=== PATIENT | male | born 1985 | race Two or more races ===

== ENCOUNTER 2016-08-13 20:30 | Inpatient (IN) | payer MEDICAID ==
[2016-08-13] MEDS ORDERED: NS 1,000 ML IV ONE (20:37)
--- NOTE | 2016-08-13 20:40 | EDPHY ---
HPI/HX/ROS/PE/MDM Narrative: CHIEF COMPLAINT: Full Trauma Activation, 60ft fall, hypotension, back pain HPI: The patient is a 31 y/o male arriving emergently via EMS as a Full Trauma Alert and in spinal precautions after falling approximately 60ft in while climbing in [facility] this afternoon. It is unclear why the patient fell, but he was helmeted and clipped into a harness. He remembers striking his back during the fall and landing on his chest. He then lost consciousness and awoke to his friends standing over him. EMS reports it took 3 hours to access and extricate the patient. The patient complains of low back pain, tingling in his left hand, and weakness in his left leg. EMS states he was unable to raise or flex his left leg due to weakness. The patient denies head, neck, chest, or abdomen pain. He denies pertinent medical history. REVIEW OF SYSTEMS: Aside from elements discussed in the HPI, a comprehensive 10-point review of systems was reviewed and is negative. 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 PHYSICAL EXAM: General:Patient is alert, in no acute distress. BP 110/68 ENT:Eyes are normal to inspection. Pupils are 2mm bilaterally and reactive. ENT inspection normal. Neck: Normal inspection. ROM deferred. C-collar in place. Respiratory:No respiratory distress. Breath sounds normal bilaterally. Cardiovascular: Regular rate and rhythm. Strong peripheral pulses. Normal cap refill. Abdomen:The abdomen is nontender to palpation. There are no peritoneal signs. There are normal bowel sounds. Back: Tenderness to lumbar spine, left lumbar paraspinous tenderness, tenderness over left posterior hip and sacrum. Skin: Normal color. No rash. Warm and dry. Abrasion and ecchymosis over left side of sacrum. Abrasion to right cheek. Extremities: Normal appearance. Full passive range of motion. Neuro: Oriented x3. Normal motor function. Normal sensory function. ED Course: Dr. Mobley, surgeon, at bedside. Respiratory and imaging at bedside. Blood bank at bedside. 2030: I met EMS upon arrival and took report. This is a healthy 31 y/o male who presents as a FTA after falling 60ft and now complains of lumbar back pain, left leg weakness, and left arm tingling. He was wearing a helmet but suffered loss of consciousness of unknown duration. His exam is positive for lumbar tenderness that is worse on the left, ecchymosis and abrasion to the left-side of his sacrum, and an abrasion to his right cheek. His chest and breath sounds are normal. His abdomen is nontender. No significant extremity trauma noted. His initial vitals are 110/68 on manual BP, tachycardic at 110, SpO2 98%, and RR 20. He received 100mcg IV Fentanyl en route. 2 peripheral IVs were established by EMS. Standard trauma labs drawn. 2040: Patient sent to CT. Head, neck, chest, abdomen/pelvis, and spinal recons ordered. 2107: Consulted with Dr. Mobley. He relayed CT results from Dr. Liriano. The patient has left superior and inferior pubic rami fractures, L1 compression fracture, and multiple sacral fractures. He will require admission to Dr. Mobley , trauma services. Study: CT of the Head Indication: Trauma, LOC Results: CT scan of the head was obtained. The results of the study are No acute posttraumatic abnormality identified. The study was read by the radiologist, Dr. Liriano. I viewed the images myself on the PACS system. Study: CT of the Neck Indication: Trauma, LOC Results: CT scan of the neck was obtained. The results of the study are No acute posttraumatic abnormality identified. The study was read by the radiologist, Dr. Liriano. I viewed the images myself on the PACS system. Study: CT of the Chest Indication: Trauma Results: CT scan of the chest was obtained. The results of the study are Patchy right lung contusion without pneumothorax or pleural fluid. The study was read by the radiologist, Dr. Liriano. I viewed the images myself on the PACS system. Study: CT of the Abdomen/Pelvis Indication: Trauma, pain Results: CT scan of the head was obtained. The results of the study are 1. Multiple upper sacral fractures as well as left superior and inferior pubic rami fractures. 2. superficial posterior soft tissue hemorrhage and small left inguinal hemorrhage. 3. L1 compression fracture. The study was read by the radiologist, Dr. Liriano. I viewed the images myself on the PACS system. Study: CT of the Lumbar and Thoracic Spine Indication: Trauma, pain Results: CT scan of the spine was obtained. The results of the study are 1. Mild L1 compression fracture. 2. Large disk herniations at L4-L5 and L5-S1. 3. Sacral fractures are discussed in the pelvic CT report. The study was read by the radiologist, Dr. Liriano. I viewed the images myself on the PACS system. 2100: Wound care and pain management with Fentanyl continued in ED until admission to floor. Patient remains hemodynamically stable. MDM: I personally spent a total of 45 minutes of critical care time in obtaining history, performing a physical exam, bedside monitoring of interventions, collecting and interpreting tests and discussion with consultants but not including time spent performing procedures. This time was exclusive of any involvement by Physician Furnace Room Supervisor. Organ system(s) at risk include: Neurologic , orthopedic and cardiovascular - Data Points Laboratory Results: Laboratory Results 08/13/16 20:40 08/13/16 20:40 08/13/16 08/13/16 08/13/16 20:40 20:40 20:40 WBC 21.16 10^3/uL H 10^3/uL (3.80-9.50) RBC 4.29 10^6/uL L 10^6/uL (4.40-6.38) Hgb 12.9 g/dL L g/dL (13.7-17.5) POC Hgb Hct 38.1 % L % (40.0-51.0) POC Hct MCV 88.8 fL fL (81.5-99.8) MCH 30.1 pg pg (27.9-34.1) MCHC 33.9 g/dL g/dL (32.4-36.7) RDW 12.6 % % (11.5-15.2) Plt Count 198 10^3/uL 10^3/uL (150-400) MPV 9.8 fL fL (8.7-11.7) Neut % (Auto) Not Reported Lymph % (Auto) Not Reported [place] % (Auto) Not Reported Eos % (Auto) Not Reported Baso % (Auto) Not Reported Nucleat RBC Rel Count 0.0 % % (0.0-0.2) Absolute Neuts (auto) Not Reported Absolute Lymphs (auto) Not Reported Absolute Monos (auto) Not Reported Absolute Eos (auto) Not Reported Absolute Basos (auto) Not Reported Absolute Nucleated RBC 0.00 10^3/uL 10^3/uL (0-0.01) Immature Gran % Not Reported Seg Neutrophils % 74 % % Band Neutrophils % 13 % % Lymphocytes % 8 % % Monocytes % 5 % % Immature Gran # Not Reported Absolute Seg Neuts 15.66 10^/uL H 10^/uL (1.70-6.50) Absolute Band Neuts 2.75 10^3/uL H 10^3/uL (0.00-0.70) Absolute Lymphocytes 1.69 10^3/uL 10^3/uL (1.00-3.00) Absolute Monocytes 1.06 10^3/uL H 10^3/uL (0.30-0.80) RBC/WBC/PLT Morphology NORMAL (NORMAL) Platelet Estimate ADEQUATE (ADEQ) PT 17.9 SEC H SEC (12.0-15.0) INR 1.48 H (0.83-1.16) APTT 29.2 SEC SEC (23.0-38.0) POC Sodium Sodium POC Potassium Potassium POC Chloride Chloride Carbon Dioxide Anion Gap POC BUN BUN Creatinine POC Creatinine Estimated GFR Glucose POC Glucose Calcium Patient ABO/Rh B POSITIVE Antibody Screen NEGATIVE 08/13/16 08/13/16 20:40 20:34 WBC RBC Hgb POC Hgb 14.6 gm/dL gm/dL (14.5-17.3) Hct POC Hct 43 % % (42.8-50.6) MCV MCH MCHC RDW Plt Count MPV Neut % (Auto) Lymph % (Auto) [place] % (Auto) Eos % (Auto) Baso % (Auto) Nucleat RBC Rel Count Absolute Neuts (auto) Absolute Lymphs (auto) Absolute Monos (auto) Absolute Eos (auto) Absolute Basos (auto) Absolute Nucleated RBC Immature Gran % Seg Neutrophils % Band Neutrophils % Lymphocytes % Monocytes % Immature Gran # Absolute Seg Neuts Absolute Band Neuts Absolute Lymphocytes Absolute Monocytes RBC/WBC/PLT Morphology Platelet Estimate PT INR APTT POC Sodium 138 mEq/L mEq/L (134-144) Sodium 135 mEq/L mEq/L (134-144) POC Potassium 3.4 mEq/L mEq/L (3.3-5.0) Potassium 3.7 mEq/L mEq/L (3.5-5.2) POC Chloride 107 mEq/L mEq/L (96-108) Chloride 106 mEq/L mEq/L (97-110) Carbon Dioxide 21 mEq/l L mEq/l (22-31) Anion Gap 8 mEq/L mEq/L (8-16) POC BUN 24 mg/dL H mg/dL (7-23) BUN 22 mg/dL mg/dL (7-23) Creatinine 1.2 mg/dL mg/dL (0.7-1.3) POC Creatinine 1.3 mg/dL mg/dL (0.8-1.5) Estimated GFR > 60 Glucose 145 mg/dL H mg/dL (70-100) POC Glucose 148 mg/dL H mg/dL (70-100) Calcium 8.1 mg/dL L mg/dL (8.5-10.4) Patient ABO/Rh Antibody Screen Point of Care Test Results: 08/13/16 20:34 POC Sodium 138 POC Potassium 3.4 POC Chloride 107 POC BUN 24 H POC Creatinine 1.3 POC Glucose 148 H General Initial Vital Signs: Initial Vital Signs Temperature (C) 37 C 08/13/16 20:30 Heart Rate 88 08/13/16 20:30 Respiratory Rate 20 08/13/16 20:30 Blood Pressure 93/46 L 08/13/16 20:30 O2 Sat (%) 100 08/13/16 20:30 O2 Delivery Mode Nasal Cannula O2 (L/minute) 2 Allergies/Adverse Reactions: No Known Allergies Allergy (Unverified 08/13/16 21:49) Home Medications: Medication Instructions Recorded Glucosamine Sulfate [Glucosamine 500 mg PO DAILY 08/13/16 Sulfate 500 MG (*)] Herbals/Supplements -Info Only 1 ea PO DAILY 08/13/16 [place]-3 Fatty Acids [Fish Oil 1000 1,000 mg PO DAILY 08/13/16 mg (*)] Departure - Departure Disposition: [facility] Inpatient Acute Clinical Impression: Injury resulting from fall from height Fracture of left inferior pubic ramus Qualifiers: Encounter type: initial encounter Fracture type: closed Qualified Code(s): S32.592A - Other specified fracture of left pubis, initial encounter for closed fracture Fracture of left superior pubic ramus Qualifiers: Encounter type: initial encounter Fracture type: closed Qualified Code(s): S32.512A - Fracture of superior rim of left pubis, initial encounter for closed fracture Fracture of sacrum Qualifiers: Encounter type: initial encounter Zone of sacrum fracture: unspecified portion of sacrum Fracture type: closed Qualified Code(s): S32.10XA - Unspecified fracture of sacrum, initial encounter for closed fracture Compression fracture of L1 lumbar vertebra Qualifiers: Encounter type: initial encounter Fracture type: closed Qualified Code(s): S32.010A - Wedge compression fracture of first lumbar vertebra, initial encounter for closed fracture Condition: Fair Report Scribed for: Aki Gonzalez Report Scribed by: Janett Menchaca Date of Report: 08/13/16 Time of Report: 20:22 Physician Review and Approval Statement: Portions of this note were transcribed by an ED scribe. I personally performed the history, physical exam, and medical decision making; and confirm the accuracy of the information in the transcribed note.
[2016-08-13 20:49] LABS: ADD DIFF? YES; ADD MORPH? NO; ATYPICAL LYMPHOCYTE FLAG 0 (0-99); FRAGMENT RBC FLAG 0 (0-99); HEMATOCRIT 38.1 % (40.0-51.0); HEMOGLOBIN 12.9 g/dL (13.7-17.5); LIPEMIA HEMOLYSIS FLAG 90 (0-99); MEAN CELL HEMOGLOBIN 30.1 pg (27.9-34.1); MEAN CELL HEMOGLOBIN CONCENTR. 33.9 g/dL (32.4-36.7); MEAN CELL VOLUME 88.8 fL (81.5-99.8); MEAN PLATELET VOLUME 9.8 fL (8.7-11.7); PLATELET CLUMPS FLAG 10 (0-99); PLATELET COUNT 198 10^3/uL (150-400); RED BLOOD CELL COUNT 4.29 10^6/uL (4.40-6.38); RED CELL DISTRIBUTION WIDTH 12.6 % (11.5-15.2)
[2016-08-13 20:54] LABS: ADD SCAN? NO; LEFT SHIFT FLG 100 (0-99)
[2016-08-13 20:57] LABS: INR 1.48 (0.83-1.16); PROTIME(PATIENT) 17.9 SEC (12.0-15.0)
[2016-08-13 20:58] LABS: APTT 29.2 SEC (23.0-38.0)
[2016-08-13 21:01] LABS: ANION GAP 8 mEq/L (8-16); CALCIUM 8.1 mg/dL (8.5-10.4); CARBON DIOXIDE 21 mEq/l (22-31); CHLORIDE 106 mEq/L (97-110); CREATININE 1.2 mg/dL (0.7-1.3); GLOMERULAR FILTRATION RATE > 60; GLUCOSE 145 mg/dL (70-100); POTASSIUM 3.7 mEq/L (3.5-5.2); SODIUM 135 mEq/L (134-144)
[2016-08-13] MEDS ORDERED: HYDROmorphONE/DILAUDID 1 MG/ML SYR ONE (21:18)
[2016-08-13] MEDS ORDERED: ALBUMIN 5% 1,000 ML IV ONE (21:30)
[2016-08-13] MEDS ORDERED: NS 500 ML IV ONE (21:30)
[2016-08-13 21:55] LABS: PLATELET ESTIMATE ADEQUATE (ADEQ)
--- NOTE | 2016-08-13 22:01 | SOAPPROG ---
SOAP Progress Note Assessment/Plan: Assessment: Plan: 08/13/16 22:00 Will not require operative treatment of left pubic rami fractures. Mobilize as tolerated regarding this. Sacral S2 and L1 fractures per spine Objective: PT 17.9 SEC (12.0-15.0) H 08/13/16 20:40 INR 1.48 (0.83-1.16) H 08/13/16 20:40 Stable pelvis fractures of left inf and sup pubic rami. ICD10 Worksheet Patient Problems: Problems Problem Status Onset Compression fracture of L1 lumbar vertebra Acute Fracture of left inferior pubic ramus Acute Fracture of left superior pubic ramus Acute Fracture of sacrum Acute Injury resulting from fall from height Acute
[2016-08-13] MEDS ORDERED: HYDROmorphONE/DILAUDID 1 MG/ML SYR IVP PRN (22:28)
[2016-08-13] MEDS ORDERED: D5W 1/2 NS 1,000 ML IV SCH (22:30)
[2016-08-13] MEDS ORDERED: D5W 1/2 NS W/ 20 KCl/L 1,000 ML IV SCH (22:30)
--- NOTE | 2016-08-13 22:41 | SOAPPROG ---
SOAP Progress Note Assessment/Plan: Assessment: 31 male with60 ft climbing fall 3 hrs prior to er admisssion co left butttock and leg pain/ no loc/ no other pain complaints ct findings: rt pulmonary mild contusion L1 compression fx complex sacral fxs left superior and inferior pubic rami fxs heent abrasion rt frontal area cor rr chest clear and equal abd nontender gen ok rectal good tone extr full rom and sensation, pain with left thigh movement nka/ no meds/ no tob/ ROS-/ PHX - with no surgeries Plan:admit to icu/ ortho and neuro consult in am 08/13/16 22:34 Objective: Vital Signs Temp Pulse Resp BP Pulse Ox 37 C 88 20 93/46 L 100 08/13/16 21:45 08/13/16 21:45 08/13/16 21:45 08/13/16 21:45 08/13/16 21:45 08/12/16 08/13/16 08/14/16 05:59 05:59 05:59 Intake Total 2750 Balance 2750 PT 17.9 SEC (12.0-15.0) H 08/13/16 20:40 INR 1.48 (0.83-1.16) H 08/13/16 20:40 ICD10 Worksheet Patient Problems: Problems Problem Status Onset Compression fracture of L1 lumbar vertebra Acute Fracture of left inferior pubic ramus Acute Fracture of left superior pubic ramus Acute Fracture of sacrum Acute Injury resulting from fall from height Acute
[2016-08-13 22:59] LABS: HEMATOCRIT 24.4 % (40.0-51.0); HEMOGLOBIN 8.6 g/dL (13.7-17.5)
[2016-08-13] MEDS: ONDANSETRON 4 MG/2 ML VIAL IVP PRN (23:27)
[2016-08-13] MEDS ORDERED: PHYTONADIONE 10 MG in NS 50 ML IV ONE (23:27)
[2016-08-13] MEDS ORDERED: TRANEXAMIC ACID 1,000 MG in NS 100 ML IV ONE (23:31)
[2016-08-14] MEDS ORDERED: LIDOCAINE 2% JELLY 20 ML (UROJECT) UR ONE (00:30)
--- NOTE | 2016-08-14 01:41 | GHP ---
[f rep st] PREOP HISTORY AND PHYSICAL HISTORY OF PRESENT ILLNESS: Patient is a 31-year-old male who was rock climbing at [facility] and fell approximately 60 feet. It is unclear about all the mechanisms of his protection. Apparently, he hit a bolder down below. He denies any real loss of consciousness. It has taken over 3 hours to bring him out of the brohard into the emergency room. His vital signs have been stable. He is mildly hypotensive, but alert, responsive, and cooperative. He mostly complains only of low back or left upper gluteal pain and some difficulties with moving his left leg with "hamstring problems." He specifically denies head, neck, chest, and abdominal pain. PAST MEDICAL HISTORY: Reveals no major surgeries or serious hospitalizations. ALLERGIES: None. MEDICATIONS: None. REVIEW OF SYSTEMS: Negative on a full review of systems. PHYSICAL EXAMINATION: GENERAL: Reveals an alert, cooperative, calm 31-year- old male, in no acute distress. HEAD and NECK: Reveals no evidence of significant head trauma. He has a slight abrasion on his right cheek. TMs are clear. Pupils are normal. Occlusion is normal. His neck is in cervical collar , but is nontender. CHEST: Reveals symmetrical breath sounds. There are no palpable rib fractures or clavicle fractures. CARDIAC: Regular rhythm. ABDOMEN: Soft, has positive bowel sounds. He has no appreciable abdominal tenderness. PELVIS: Appears to be intact, stable even with no real tenderness elicited on palpation or compression of his pelvis. EXTREMITIES: Reveal full range of motion, full distal pulses. Good capillary filling. He complains of pain with moving his left leg mostly related to the upper inner thigh area, but he has intact sensation throughout. RECTAL: Reveals good rectal tone. IMAGING: Imaging studies of his head and neck were negative for any evidence of injury. CT of his abdomen and pelvis with spine reconstructions revealed an L1 compression fracture, multiple complex sacral fractures, and the inferior and superior pubic ramus fracture on the left. He has no free blood in the abdomen and minimal blood in the retroperitoneum by the sacral fractures. IMPRESSION: 1. Left sacral fracture. 2. L1 compression fracture. 3. Abrasions and contusions. 4, superior and inferior left pubic ramus fractures PLAN: Admit for observation with neurosurgical and orthopedic consultations. /[id number]/MODL MTDD
[2016-08-14 02:12] LABS: HEMATOCRIT 29.4 % (40.0-51.0); HEMOGLOBIN 10.2 g/dL (13.7-17.5)
[2016-08-14] MEDS ORDERED: DOPamine/DEXTROSE/250 ML BAG IV ONE (02:46)
[2016-08-14] MEDS: OXYCODONE/APAP 5/325 TAB PO PRN ×4 (02:52→19:50)
[2016-08-14 04:29] LABS: % IMMATURE GRANULYOCYTES 0.6 % (0.0-1.1); ABSOLUTE IMMATURE GRANULOCYTES 0.06 10^3/uL (0.00-0.10); ADD DIFF? NO; ADD MORPH? NO; ADD SCAN? NO; ATYPICAL LYMPHOCYTE FLAG 0 (0-99); FRAGMENT RBC FLAG 0 (0-99); HEMOGLOBIN 9.8 g/dL (13.7-17.5); LEFT SHIFT FLG 90 (0-99); LIPEMIA HEMOLYSIS FLAG 90 (0-99); MEAN CELL HEMOGLOBIN 30.5 pg (27.9-34.1); MEAN CELL VOLUME 87.2 fL (81.5-99.8); MEAN PLATELET VOLUME 10.3 fL (8.7-11.7); PLATELET CLUMPS FLAG 20 (0-99); PLATELET COUNT 91 10^3/uL (150-400); RED BLOOD CELL COUNT 3.21 10^6/uL (4.40-6.38); RED CELL DISTRIBUTION WIDTH 15.2 % (11.5-15.2)
[2016-08-14 04:44] LABS: ANION GAP 8 mEq/L (8-16); CALCIUM 7.4 mg/dL (8.5-10.4); CARBON DIOXIDE 22 mEq/l (22-31); CHLORIDE 110 mEq/L (97-110); GLOMERULAR FILTRATION RATE > 60; GLUCOSE 122 mg/dL (70-100); POTASSIUM 4.7 mEq/L (3.5-5.2); SODIUM 140 mEq/L (134-144)
[2016-08-14 04:52] LABS: INR 1.56 (0.83-1.16); PROTIME(PATIENT) 18.7 SEC (12.0-15.0)
[2016-08-14 04:53] LABS: APTT 32.6 SEC (23.0-38.0)
[2016-08-14] MEDS: ONDANSETRON 4 MG/2 ML VIAL IVP PRN (07:26)
[2016-08-14 08:47] LABS: HEMATOCRIT 26.3 % (40.0-51.0); HEMOGLOBIN 9.2 g/dL (13.7-17.5)
--- NOTE | 2016-08-14 08:51 | GCON ---
[f rep st] CONSULTATION INPATIENT CONSULTATION NOTE DATE OF CONSULTATION: 08/14/2016 I was asked to see the patient secondary to pelvis fractures sustained after a 60 foot rock climbing fall. His history is well detailed in his intake through the emergency department at [facility] as well as notes from Dr. Dale Mobley. Briefly, he has fallen approximately 20 feet with lo ss of consciousness at the scene. He was extricated after a prolonged extrication that took approxi mately 3 hours. He has been identified as having a left superior and inferior pubic rami fractures in addition to sacral and lumbar spine fractures. PHYSICAL EXAMINATION: Finds his pelvis to be stable to compression and rock testing. He does have discomfort in the anterior inguinal crease, consistent with his bony injuries. He has a capillary r efill of 2 seconds or less in the toes with a bounding dorsalis pedis and posterior tibialis pulse. Muscle bulk and sensation on the thighs and calves also were normal. He has normal sensory exam in the tibial, superficial and deep peroneal, sural, and saphenous nerve distributions in his foot hiren aterally. A CT scan of the abdomen and pelvis reveals superior and inferior pubic rami fractures. His sacral fracture as such, it does not appear that it violates the pelvic ring which should allow weightbearing through the femoral acetabular joints bilaterally as tolerated. IMPRESSIONS/RECOMMENDATIONS: Minimally displaced left superior and inferior pubic rami fractures. This should allow weightbearing as tolerated to the bilateral lower extremities, but I think it will likely take 3-4 days at least before he is comfortable enough to be upright. The spine service may feel that he is unsuitable based on his spine fractures for standing erect, and I would defer to eir judgment on when he may do this. Typically, follow these patients up at approximately 6 weeks f or pelvis x-rays to ensure that there is satisfactory evidence of bone healing. Do not hesitate to call me if there is any additional indications for orthopedic consultation. /[id number]/MODL
--- NOTE | 2016-08-14 09:22 | NEUSURGPN ---
Assessment/Plan: Full neurosurgical consult dictated 31 yo male sp 60 ft fall while rock climbing sustaining sacral, pelvic fracture and L1 compression fracture -Neuro intact -[place] out later today to check urinary function -TLSO brace to be ordered from [employer] today -Brace to be worn only when out of bed, not in bed -No surgical indications for L1 compression fracture -Saw with Dr. Robison at 0830am -Call with any questions Catheter Insertion Date: 08/14/16 - Physician Discussed Patient with Dr.: Robison Patient Seen by : Ricki Neurosurgery Physical Exam - Vitals, I&O, Labs I and O 08/13/16 08/14/16 08/15/16 05:59 05:59 05:59 Intake Total 4278 641 Output Total 745 Balance 3533 641 Weight 59 kg Intake: Oral (ml) 250 IV Intake (ml) 0 IV Infused (ml) 3428 Albumin 5% 1,000 ml @ As 0 Directed IV ONCE ONE Rx#: [id number] D5W 1/2 NS W/ 20 KCl/L 1, 651 000 ml @ 75 mls/hr IV CONT LYN Rx#:[id number] DOPamine/DEXTROSE 250 ml 27 @ As Directed IV AD LYN Rx#:[id number] Fresh Frozen Plasma (ml) 641 Packed Red Blood Cells ( 600 ml) Output: Urine (ml) 745 Catheter 745 Other: Number of Voids 0 Vital Signs Temp Pulse Resp BP Pulse Ox 37.8 C 98 15 99/60 L 96 08/14/16 08:00 08/14/16 09:00 08/14/16 09:00 08/14/16 09:00 08/14/16 09:00 Laboratory Results 08/14/16 08:25 08/14/16 04:00 ICD10 Worksheet Patient Problems: Problems Problem Status Onset Compression fracture of L1 lumbar vertebra Acute Fracture of left inferior pubic ramus Acute Fracture of left superior pubic ramus Acute Fracture of sacrum Acute Injury resulting from fall from height Acute
--- NOTE | 2016-08-14 11:03 | GCON ---
[f rep st] CONSULTATION NEUROSURGERY CONSULTATION NOTE CHIEF COMPLAINT: Fall while climbing, back pain. HISTORY OF PRESENT ILLNESS: This is a 31-year-old gentleman who was climbing yesterday in [facility] when he slipped and fell approximately 60 feet. It is really unclear why the patient fell, b ut he states that he was helmeted. He then lost consciousness and woke to his friends standing over him. The patient was then taken by the emergency medical services to the emergency room where he w as found to be complaining of back pain, some tingling in his left hand, and weakness in his left le g. The patient denied any head or neck pain. CT scans later showed a sacral fracture as well as a pelvic rami fracture and an L1 compression fracture. Neurosurgery services were consulted for the L 1 compression fracture. The patient stated on our consultation this morning that he is currently silva ving some back pain with movement, but otherwise is doing okay. He denies any numbness, tingling, p ain in his arms or legs. He denies any weakness in his arms or legs. He denies any loss of bowel o r bladder control or any saddle anesthesias. He does currently have a catheter. REVIEW OF SYSTEMS: Pertinent positive and negative review of systems are as stated in HPI. PAST MEDICAL HISTORY: Patient denies any significant past medical history. FAMILY HISTORY: The patient denies any significant past family medical history. He denies any neur ologic family history such as aneurysm, stroke, or seizures. SOCIAL HISTORY: Patient is currently a mountain tour guide. He lives in [place]. He denies a ny tobacco use or any illicit drug use. ALLERGIES: The patient has no known drug allergies. OBJECTIVE: VITAL SIGNS: Blood pressure 92/45, heart rate 93, respiratory rate 16, O2 saturation 96 % on room air. Temperature 37.63 Celsius. CONSTITUTIONAL: Patient is a well-developed, well-holly shed male, in no acute distress. HEENT: Patient has a small abrasion over the right side of his ch telida. Otherwise, head is normocephalic, atraumatic. Pupils are equal and reactive to light and acco mmodation. Extraocular muscles are intact. RESPIRATORY: The patient has normal work of breathing. ABDOMEN: The patient has no guarding. NEURO: Cranial nerves 2-12 are grossly intact. Tongue pr otrusion is midline. Face is symmetrical. Accessory muscles are 5/5 and equal in strength. Motor: Bilateral upper extremities are 5/5 and equal in strength in all muscle groups including deltoids, biceps, triceps, wrist extensors, flexors, interossei, and system support analyst. Sensation is intact to the bilate ral upper extremities. Bilateral lower extremities are 5/5 and equal in strength in all muscle grou ps including hamstrings, quadriceps, dorsiflexion, plantar flexion, and EHL. Sensation is intact to light touch over the bilateral lower extremities. Other reflexes: Deep tendon reflexes are 2+ hiren aterally in the brachioradialis, biceps, and patellar. Negative for Jacobson's, clonus, and Babinski . EXTREMITIES: No cyanosis or edema noted. MUSCULOSKELETAL: There is tenderness to palpation ove r the mid lumbar spine. There is also pain on exam to his left lower extremity due to his pelvic fr actures. LABORATORY DATA: White blood cell count 9.85, red blood cell count 3.21, hematocrit 28.0, platelets 198. PT 18.7, INR 1.56, APTT 32.6. Sodium 140, potassium 4.7, chloride 110, CO2 of 22, anion gap is 8, BUN 23, creatinine 1.0. IMAGING: Reviewed. A CT was done without contrast of the lumbar spine, which showed a large disk h erniation at L4-5 and L5-S1, with sacral fractures and an L1 compression fracture. A cervical spine CT was performed without contrast and shows no acute posttraumatic abnormality. A head CT without contrast was also performed and shows no acute intracranial hemorrhage or any othe r acute changes. ASSESSMENT AND PLAN: This is a 31-year-old male who was climbing out at [facility] and had a f all by approximately 60 feet yesterday. He subsequently does have an L1 compression fracture, as we ll as a sacral and pelvic fractures. For his L1 compression fracture, we will try him in a TLSO samuel kpack-style brace that he is to wear only when he is up and out of bed. He does not need to wear it in bed. At this time, he remains neurologically intact without any signs of weakness. Did talk wi th the nurse about removing his catheter later today to ensure that his bowels and bladder are intac t. He should continue to progress with PT and OT. He is to alert us with any changes in his neuro or motor exam. The patient was seen by Neurosurgical services this morning at 8:30 a.m. Please con tact Neurosurgery with any questions or concerns. /[id number]/MODL
[2016-08-14] MEDS ORDERED: NS 1,000 ML IV ONE (11:06)
--- NOTE | 2016-08-14 12:53 | SOAPPROG ---
SOAP Progress Note Assessment/Plan: Assessment: Plan: Subjective: hd 2 sacfal and pelvic fx, lumbaf 1 compression fx trending hypotensive, but dopamine offf getting fluid challenge. wiill check hct again, may need arteriogram if hct keeps dropping. Objective: Vital Signs Temp Pulse Resp BP Pulse Ox 37.6 C 89 18 103/48 L 94 08/14/16 10:00 08/14/16 12:00 08/14/16 12:00 08/14/16 12:00 08/14/16 12:00 Laboratory Results 08/14/16 08:25 08/14/16 04:00 08/13/16 08/14/16 08/15/16 05:59 05:59 05:59 Intake Total 4278 641 Output Total 745 Balance 3533 641 PT 18.7 SEC (12.0-15.0) H 08/14/16 04:00 INR 1.56 (0.83-1.16) H 08/14/16 04:00 ICD10 Worksheet Patient Problems: Problems Problem Status Onset Compression fracture of L1 lumbar vertebra Acute Fracture of left inferior pubic ramus Acute Fracture of left superior pubic ramus Acute Fracture of sacrum Acute Injury resulting from fall from height Acute
[2016-08-14 13:40] LABS: HEMATOCRIT 23.8 % (40.0-51.0); HEMOGLOBIN 8.3 g/dL (13.7-17.5)
[2016-08-14] MEDS ORDERED: FLUMAZENIL 0.5 MG/5 ML MDV IVP ONE (16:24)
[2016-08-14] MEDS ORDERED: NALOXONE HCL 0.4 MG/ML INJ ONE (16:25)
[2016-08-14] MEDS ORDERED: MIDAZOLAM 2 MG/2 ML VIAL ONE (16:25)
[2016-08-14] MEDS ORDERED: fentaNYL 100 MCG/2 ML INJ ONE (16:25)
[2016-08-14] MEDS ORDERED: PHENYLEPHRINE HCL 50 MG in D5W 250 ML IV SCH (16:30)
--- NOTE | 2016-08-14 16:59 | GCON ---
[f rep st] CONSULTATION PULMONARY/CRITICAL CARE CONSULTATION DATE OF CONSULTATION: 08/14/2016 REFERRING PHYSICIAN: Parker Yoder MD REASON FOR REFERRAL: Evaluation and management of anemia and hypotension. 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 It took them o cortney 3 hours to get him out of the [place]on with [facility]. He received about 3 L of fluid prior to the emergency department. He was mildly hypotensive but alert, responsive and cooperative. He was helmeted at the time of the injury. He had low back and left leg pain with movement. He has be en transfused 2 units since admission. He has had some hypotension for which he has been started on low-dose dopamine. He currently reports that his pain is fairly well controlled. PAST MEDICAL HISTORY: None. MEDICATIONS: None. ALLERGIES: None. SOCIAL HISTORY: The patient is a hunter guide. He does not smoke. FAMILY HISTORY: Unremarkable. REVIEW OF SYSTEMS: A complete review of systems adds nothing to the history of present illness. PHYSICAL EXAMINATION: GENERAL: The patient is awake, alert, and in no acute distress. VITAL SIGNS : Blood pressure is 103/51; the patient is on dopamine at 2.5 mcg/kg per minute. Pulse of 94, he i s afebrile. Oxygen saturations are 93% on room air. HEENT: Normocephalic. He has an abrasion on his face. He has a small fracture of right posterior lower tooth, and a small hematoma under his to ngue. NECK: No adenopathy. Trachea is midline. No masses. CHEST: Clear to auscultation. CARDI AC: Regular rate and rhythm without murmur. ABDOMEN: Soft, nontender. Bowel sounds are present. EXTREMITIES: No clubbing, cyanosis, or edema. He has some ecchymoses in his left buttock. LABORATORY: White blood count is 9.8. Hemoglobin is 8.3, down from 12.9, after transfusion of 2 un its of packed red blood cells. Platelet count is 91. Chemistry group is normal. Glucose is 122. INR is 1.6. CT scan shows several sacral and inferior pubic rami fractures with fairly extensive superficial pos terior soft tissue hemorrhage. Images reviewed. ASSESSMENT: 1. Status post multiple trauma following a climbing accident. The patient has primarily pelvic and sacral fractures and soft-tissue injuries. 2. Anemia. The patient has had over a 4-point drop in hemoglobin despite transfusion of 2 units pa cked red cells, and his hemoglobin continues to fall. There is some concern for an ongoing source o f bleeding in his pelvis. 3. Hypotension. This is likely due to hypovolemia from bleeding. It has responded to low-dose dop amine. 4. Thrombocytopenia. This has developed during hospitalization, likely due to bleeding. 5. Elevated INR. This is likely due to consumption. RECOMMENDATIONS: 1. The patient is being taken to Interventional Radiology, by Dr. Thomas to do selective angiography, to determine if there is active bleeding. 2. As per Dr. Yoder, we will change to dopamine to phenylephrine and minimize saline; however, using blood products or albumin instead. 3. Repeat INR and CBC to follow platelets and coagulation status. /[id number]/MODL
[2016-08-14] MEDS ORDERED: IOPAMIDOL (ISOVUE-300) 100 ML BTL IV ONE ×4 (17:24→19:50)
[2016-08-14] MEDS ORDERED: HEPARIN 10,000 UNIT/10 ML MDV ONE (17:24)
[2016-08-14] MEDS ORDERED: ALTEPLASE 2 MG VIAL IVP PRN (17:35)
[2016-08-14 18:06] LABS: HEMATOCRIT 22.6 % (40.0-51.0); HEMOGLOBIN 7.9 g/dL (13.7-17.5); MEAN CELL HEMOGLOBIN 30.4 pg (27.9-34.1); MEAN CELL VOLUME 86.9 fL (81.5-99.8); RED BLOOD CELL COUNT 2.6 10^6/uL (4.40-6.38); RED CELL DISTRIBUTION WIDTH 15.4 % (11.5-15.2)
[2016-08-14 18:15] LABS: INR 1.53 (0.83-1.16); PROTIME(PATIENT) 18.4 SEC (12.0-15.0)
--- NOTE | 2016-08-14 19:23 | POSTOPPROG ---
Post Op Note Date of Operation: 08/14/16 Surgeon: Sandy Thomas Anesthesia: IV Sedation (fentanyl and versed) Pre-op Diagnosis: trauma Post-op Diagnosis: trauma with multiple vessel injuries Indication: continued hypotension Procedure: LT pelvic and femoral angiogram Findings: 4 truncated/active bleeding vessels coil embolized Inf/Abcess present in the surg proc area at time of surgery?: No Depth: Superfical (Skin SQ) EBL: Minimal Complications: None immediately.
[2016-08-14] MEDS: LR 1,000 ML IV SCH (20:35)
[2016-08-14 22:18] LABS: HEMATOCRIT 25.9 % (40.0-51.0); HEMOGLOBIN 8.9 g/dL (13.7-17.5)
[2016-08-15] MEDS: OXYCODONE/APAP 5/325 TAB PO PRN ×4 (01:00→20:02)
[2016-08-15 01:55] LABS: HEMATOCRIT 25.3 % (40.0-51.0); HEMOGLOBIN 8.8 g/dL (13.7-17.5)
[2016-08-15] MEDS: LR 1,000 ML IV SCH (05:21)
[2016-08-15 05:57] LABS: HEMATOCRIT 25.7 % (40.0-51.0); HEMOGLOBIN 8.7 g/dL (13.7-17.5); MEAN CELL HEMOGLOBIN 28.8 pg (27.9-34.1); MEAN CELL HEMOGLOBIN CONCENTR. 33.9 g/dL (32.4-36.7); MEAN CELL VOLUME 85.1 fL (81.5-99.8); RED BLOOD CELL COUNT 3.02 10^6/uL (4.40-6.38); RED CELL DISTRIBUTION WIDTH 16.1 % (11.5-15.2)
[2016-08-15] MEDS: ONDANSETRON 4 MG/2 ML VIAL IVP PRN ×4 (05:57→20:03)
[2016-08-15 06:00] LABS: INR 1.39 (0.83-1.16)
[2016-08-15 06:04] LABS: ANION GAP 6 mEq/L (8-16); CALCIUM 7.8 mg/dL (8.5-10.4); CARBON DIOXIDE 25 mEq/l (22-31); CHLORIDE 108 mEq/L (97-110); CREATININE 0.8 mg/dL (0.7-1.3); GLOMERULAR FILTRATION RATE > 60; GLUCOSE 88 mg/dL (70-100); POTASSIUM 3.9 mEq/L (3.5-5.2); SODIUM 139 mEq/L (134-144)
--- NOTE | 2016-08-15 08:35 | TRAUMAPN ---
Subjective: awake, sitting up in chair, mild nausea Objective: Vital Signs Temp Pulse Resp BP Pulse Ox 36.9 C 75 16 111/54 L 98 08/15/16 08:00 08/15/16 08:00 08/15/16 08:00 08/15/16 08:00 08/15/16 08:00 Laboratory Results 08/15/16 05:40 08/15/16 05:40 08/14/16 08/15/16 08/16/16 05:59 05:59 05:59 Intake Total 4278 4116 Output Total 745 2275 Balance 3533 1841 PT 17.0 SEC (12.0-15.0) H 08/15/16 05:40 INR 1.39 (0.83-1.16) H 08/15/16 05:40 - C-Spine Clearance Cervical Spine Cleared: Yes Provider who Cleared Cervical Spine: Dr. Mobley Physical Exam - Physical Exam General Appearance: alert, mild distress Neck: non-tender Respiratory: lungs clear, decreased breath sounds (R>L) Cardiac/Chest: regular rate, rhythm Abdomen: non-tender (hypoactive bowel sounds), soft Extremities: normal range of motion, non-tender Neuro/Psych: normal mood/affect, oriented x 3, other (LE DTR's symmetrical)
--- NOTE | 2016-08-15 09:29 | SOAPPROG ---
SOAP Progress Note Assessment/Plan: Assessment: Post pelvic angio with 4 vessel embo for active extrav/truncation of multiple branches. HCT stablizing. Plan: If bleeds again, there's only one more potential source in posterior division of LT IIA that was subtle and hard to get to yesterday. Can repeat angio if needed. 08/15/16 09:25 08/15/16 09:27 Subjective: Sitting in chair resting. Pain controlled. Objective: Vital Signs Temp Pulse Resp BP Pulse Ox 36.9 C 75 16 111/54 L 98 08/15/16 08:00 08/15/16 08:00 08/15/16 08:00 08/15/16 08:00 08/15/16 08:00 Laboratory Results 08/15/16 05:40 08/15/16 05:40 08/14/16 08/15/16 08/16/16 05:59 05:59 05:59 Intake Total 4278 4116 Output Total 745 2275 Balance 3533 1841 PT 17.0 SEC (12.0-15.0) H 08/15/16 05:40 INR 1.39 (0.83-1.16) H 08/15/16 05:40 RT groin puncture site without hematoma. Abd soft. Normal pedal pulses. ICD10 Worksheet Patient Problems: Problems Problem Status Onset Compression fracture of L1 lumbar vertebra Acute Fracture of left inferior pubic ramus Acute Fracture of left superior pubic ramus Acute Fracture of sacrum Acute Injury resulting from fall from height Acute Mountain climbing, rock climbing and wall climbing Acute Mountain climbing, rock climbing and wall climbing Acute
--- NOTE | 2016-08-15 09:37 | NEUSURGPN ---
Assessment/Plan: 31 yo male sp 60 ft fall while rock climbing sustaining sacral, pelvic fracture and L1 compression fracture -Neuro intact- yeboah removed this am, will monitor urinary progress -TLSO brace fit -Brace to be worn only when out of bed, not in bed -No surgical indications for L1 compression fracture -Hypotension- stable this am- had sacrum embolized yesterday due to dropping H/ H. -Call with any changes in neuro or motor exam Subjective: Patient resting in chair. Pain tolerable on medications. Has been up with PT/OT but did become nauseated with movement. has not had BM yet or voided, yeboah just removed this am. Denies saddle anesthesia, incontinence, pain, numbness, tingling in legs. Objective: NAD, VSS A&O X3 CN II-XII grossly intact PERRL, EOMI BUE/BLE 5/5= Sensation intact to lt touch Catheter Insertion Date: 08/14/16 - Physician Discussed Patient with Dr.: Robison Neurosurgery Physical Exam - Vitals, I&O, Labs I and O 08/14/16 08/15/16 08/16/16 05:59 05:59 05:59 Intake Total 4278 4116 Output Total 745 2275 Balance 3533 1841 Weight 59 kg Intake: Oral (ml) 250 500 IV Intake (ml) 0 1000 IV Infused (ml) 3428 1675 Albumin 5% 1,000 ml @ As 0 Directed IV ONCE ONE Rx#: [id number] D5W 1/2 NS W/ 20 KCl/L 1, 651 000 ml @ 75 mls/hr IV CONT LYN Rx#:[id number] DOPamine/DEXTROSE 250 ml 27 @ As Directed IV AD LYN Rx#:[id number] Lr 1,000 ml @ 110 mls/hr 1675 IV CONT LYN Rx#: [id number] Fresh Frozen Plasma (ml) 641 Packed Red Blood Cells ( 600 300 ml) Output: Urine (ml) 745 2275 Catheter 745 2275 Other: Number of Voids 0 Vital Signs Temp Pulse Resp BP Pulse Ox 36.9 C 75 16 111/54 L 98 08/15/16 08:00 08/15/16 08:00 08/15/16 08:00 08/15/16 08:00 08/15/16 08:00 Laboratory Results 08/15/16 05:40 08/15/16 05:40 ICD10 Worksheet Patient Problems: Problems Problem Status Onset Compression fracture of L1 lumbar vertebra Acute Fracture of left inferior pubic ramus Acute Fracture of left superior pubic ramus Acute Fracture of sacrum Acute Injury resulting from fall from height Acute Mountain climbing, rock climbing and wall climbing Acute Mountain climbing, rock climbing and wall climbing Acute
[2016-08-15] MEDS: ENOXAPARIN 40 MG/0.4 ML SYR SC SCH (09:54)
[2016-08-15] MEDS ORDERED: BISACODYL 10 MG SUPP PR PRN (10:49)
[2016-08-15] MEDS ORDERED: LACTULOSE 20 GM/30 ML UDCUP PO PRN (10:49)
[2016-08-15 15:34] LABS: % IMMATURE GRANULYOCYTES 0.5 % (0.0-1.1); ABSOLUTE IMMATURE GRANULOCYTES 0.03 10^3/uL (0.00-0.10); ADD DIFF? NO; ADD MORPH? NO; ADD SCAN? NO; ATYPICAL LYMPHOCYTE FLAG 0 (0-99); FRAGMENT RBC FLAG 0 (0-99); HEMATOCRIT 24.7 % (40.0-51.0); HEMOGLOBIN 8.6 g/dL (13.7-17.5); LEFT SHIFT FLG 30 (0-99); LIPEMIA HEMOLYSIS FLAG 90 (0-99); MEAN CELL HEMOGLOBIN 29.3 pg (27.9-34.1); MEAN CELL HEMOGLOBIN CONCENTR. 34.8 g/dL (32.4-36.7); MEAN PLATELET VOLUME 9.9 fL (8.7-11.7); PLATELET CLUMPS FLAG 0 (0-99); PLATELET COUNT 84 10^3/uL (150-400); RED BLOOD CELL COUNT 2.94 10^6/uL (4.40-6.38); RED CELL DISTRIBUTION WIDTH 15.4 % (11.5-15.2)
--- NOTE | 2016-08-15 16:31 | PDINTPN ---
Physician/Internist Progress Note Assessment/Plan: Assessment: S/P Fall with pelvic/scaral Fxs, extensive hematoma Anemia: Due to soft-tissue bleeding in pelvis/hip tissues: S/P successful IR embolization. Hgb Stable Thrombocytopenia: Consumptive coagulopathy, wiht elevated INR as well. Plt creeping up. Urinary retention Plan: Follow CBC. Straight cath PRN. PO narcotics for pain control. Increase activity as tolerated. 08/15/16 16:29 Subjective: Feels OK, pain control good, even able to stand/walk with assist. + flatus. Unable to urinate after Cortez taken out. Some nausea, no vomiting. Objective: Vital Signs Temp Pulse Resp BP Pulse Ox 36.9 C 94 18 118/60 98 08/15/16 08:00 08/15/16 15:23 08/15/16 15:23 08/15/16 15:23 08/15/16 15:23 Laboratory Results 08/15/16 15:29 08/15/16 05:40 08/14/16 08/15/16 08/16/16 05:59 05:59 05:59 Intake Total 4278 4116 Output Total 745 2275 Balance 3533 1841 PT 17.0 SEC (12.0-15.0) H 08/15/16 05:40 INR 1.39 (0.83-1.16) H 08/15/16 05:40 Physical Exam - Physical Exam General Appearance: alert, no apparent distress EENT: normal ENT inspection Neck: normal inspection Respiratory: lungs clear, normal breath sounds Cardiac/Chest: regular rate, rhythm, No edema Abdomen: normal bowel sounds, non-tender Skin: normal color, warm/dry Extremities: other (left buttocks+ flank swelling/eccymoses), No normal inspection Neuro/Psych: alert, normal mood/affect, oriented x 3 ICD10 Worksheet Patient Problems: Problems Problem Status Onset Compression fracture of L1 lumbar vertebra Acute Fracture of left inferior pubic ramus Acute Fracture of left superior pubic ramus Acute Fracture of sacrum Acute Injury resulting from fall from height Acute Mountain climbing, rock climbing and wall climbing Acute Mountain climbing, rock climbing and wall climbing Acute
[2016-08-15] MEDS: SENNOSIDES/DOCUSATE SODIUM TAB PO SCH (20:02)
[2016-08-16] MEDS: OXYCODONE/APAP 5/325 TAB PO PRN ×4 (04:08→20:00)
[2016-08-16 04:23] LABS: % IMMATURE GRANULYOCYTES 0.5 % (0.0-1.1); ABSOLUTE IMMATURE GRANULOCYTES 0.03 10^3/uL (0.00-0.10); ADD DIFF? NO; ADD MORPH? NO; ADD SCAN? NO; ATYPICAL LYMPHOCYTE FLAG 0 (0-99); FRAGMENT RBC FLAG 0 (0-99); HEMATOCRIT 21.8 % (40.0-51.0); HEMOGLOBIN 7.4 g/dL (13.7-17.5); LEFT SHIFT FLG 10 (0-99); LIPEMIA HEMOLYSIS FLAG 90 (0-99); MEAN CELL HEMOGLOBIN 29.6 pg (27.9-34.1); MEAN CELL HEMOGLOBIN CONCENTR. 33.9 g/dL (32.4-36.7); MEAN CELL VOLUME 87.2 fL (81.5-99.8); MEAN PLATELET VOLUME 10.1 fL (8.7-11.7); PLATELET CLUMPS FLAG 20 (0-99); PLATELET COUNT 74 10^3/uL (150-400); RED CELL DISTRIBUTION WIDTH 14.7 % (11.5-15.2)
--- NOTE | 2016-08-16 06:46 | TRAUMAPN ---
Assessment/Plan: s/p fall with pelvic fracture/associated shearing injury and moderate blood loss /coil embolization mild drop in H/H but hemodynamically stable will recheck H/H later today, continue PT/OT, advance diet transfer to med surg if H/H stable later today Subjective: awake and alert/unable to void-in and out cath performed Objective: Vital Signs Temp Pulse Resp BP Pulse Ox 36.9 C 93 16 120/61 96 08/15/16 08:00 08/16/16 04:00 08/16/16 04:00 08/16/16 04:00 08/16/16 04:00 Laboratory Results 08/16/16 04:12 08/15/16 05:40 08/15/16 08/16/16 08/17/16 05:59 05:59 05:59 Intake Total 4116 2000 Output Total 2275 900 Balance 1841 1100 PT 17.0 SEC (12.0-15.0) H 08/15/16 05:40 INR 1.39 (0.83-1.16) H 08/15/16 05:40 - C-Spine Clearance Cervical Spine Cleared: Yes Provider who Cleared Cervical Spine: Dr. Mobley Physical Exam - Physical Exam General Appearance: alert, mild distress Respiratory: lungs clear Cardiac/Chest: regular rate, rhythm Abdomen: normal bowel sounds, non-tender, soft Neuro/Psych: no motor/sensory deficits, alert, normal mood/affect, oriented x 3
[2016-08-16] MEDS: SENNOSIDES/DOCUSATE SODIUM TAB PO SCH ×2 (08:57→20:00)
[2016-08-16] MEDS: ENOXAPARIN 40 MG/0.4 ML SYR SC SCH (08:59)
[2016-08-16] MEDS: ONDANSETRON 4 MG/2 ML VIAL IVP PRN ×4 (08:59→22:39)
[2016-08-16 11:09] LABS: HEMOGLOBIN 7.9 g/dL (13.7-17.5)
--- NOTE | 2016-08-16 12:53 | NEUSURGPN ---
Assessment/Plan: 31 yo male sp 60 ft fall while rock climbing sustaining sacral, pelvic fracture and L1 compression fracture -Neuro intact- yeboah removed yesterday, still unable to void on own- may be due to sacral nerve injury. Continue with straight cath protocol -TLSO brace fit -Brace to be worn only when out of bed, not in bed -No surgical indications for L1 compression fracture -X-rays show stable L1 and sacral fractures -H/H-slightly dropped today -continue to monitor -Call with any changes in neuro or motor exam -Discussed with Dr. Robison Subjective: Patient doing better today with nausea. Up with PT/OT more yesterday. Feels each time he tries to urinate he may be getting closer to being able to urinate. Denies pain, numbness, tingling in legs. Objective: NAD, VSS BUE/BLE 5/5= Sensation intact to lt touch Catheter Insertion Date: 08/14/16 - Physician Discussed Patient with Dr.: Robison Neurosurgery Physical Exam - Vitals, I&O, Labs I and O 08/15/16 08/16/16 08/17/16 05:59 05:59 05:59 Intake Total 4116 2000 Output Total 2275 900 500 Balance 1841 1100 -500 Intake: Oral (ml) 500 2000 IV Intake (ml) 1000 IV Infused (ml) 1675 Lr 1,000 ml @ 110 mls/hr 1675 IV CONT LYN Rx#: [id number] Fresh Frozen Plasma (ml) 641 Packed Red Blood Cells ( 300 ml) Output: Urine (ml) 2275 900 500 Catheter 2275 900 500 Other: Number of Voids Catheter 1 1 Bladder Scan Volume (ml) Catheter 350 Vital Signs Temp Pulse Resp BP Pulse Ox 36.9 C 81 16 112/70 94 08/15/16 08:00 08/16/16 11:00 08/16/16 08:00 08/16/16 11:00 08/16/16 11:00 Laboratory Results 08/16/16 10:45 08/15/16 05:40 ICD10 Worksheet Patient Problems: Problems Problem Status Onset Compression fracture of L1 lumbar vertebra Acute Fracture of left inferior pubic ramus Acute Fracture of left superior pubic ramus Acute Fracture of sacrum Acute Injury resulting from fall from height Acute Mountain climbing, rock climbing and wall climbing Acute Mountain climbing, rock climbing and wall climbing Acute
--- NOTE | 2016-08-16 13:13 | PDINTPN ---
Lithographer Helper Progress Note Assessment/Plan: Assessment: S/P Fall with pelvic/sacral Fxs, extensive hematoma Anemia: Due to soft-tissue bleeding in pelvis/hip tissues: S/P successful IR embolization. Hgb down a bit this AM. Thrombocytopenia: Consumptive coagulopathy, wiht elevated INR as well. Plt creeping up. Urinary retention Plan: Follow CBC. Straight cath PRN. PO narcotics for pain control. Increase activity as tolerated, ? try Zofran before activity. May transfer to floor if Hgb doesn't fall further. 08/15/16 16:29 08/16/16 13:12 Subjective: Still unable to urinate. Nausea with more strenuous activity. Objective: Vital Signs Temp Pulse Resp BP Pulse Ox 36.9 C 81 16 112/70 94 08/15/16 08:00 08/16/16 11:00 08/16/16 08:00 08/16/16 11:00 08/16/16 11:00 Laboratory Results 08/16/16 10:45 08/15/16 05:40 08/15/16 08/16/16 08/17/16 05:59 05:59 05:59 Intake Total 4116 2000 Output Total 2275 900 500 Balance 1841 1100 -500 PT 17.0 SEC (12.0-15.0) H 08/15/16 05:40 INR 1.39 (0.83-1.16) H 08/15/16 05:40 Physical Exam - Physical Exam General Appearance: alert, no apparent distress EENT: normal ENT inspection Neck: normal inspection Respiratory: lungs clear Cardiac/Chest: regular rate, rhythm, edema Abdomen: normal bowel sounds, non-tender Skin: normal color, warm/dry Extremities: normal inspection Neuro/Psych: alert, normal mood/affect, oriented x 3 ICD10 Worksheet Patient Problems: Problems Problem Status Onset Compression fracture of L1 lumbar vertebra Acute Fracture of left inferior pubic ramus Acute Fracture of left superior pubic ramus Acute Fracture of sacrum Acute Injury resulting from fall from height Acute Mountain climbing, rock climbing and wall climbing Acute Mountain climbing, rock climbing and wall climbing Acute
[2016-08-17] MEDS: ONDANSETRON 4 MG/2 ML VIAL IVP PRN ×3 (05:04→19:30)
[2016-08-17] MEDS: OXYCODONE/APAP 5/325 TAB PO PRN ×4 (05:04→21:29)
--- NOTE | 2016-08-17 08:56 | NEUSURGPN ---
Assessment/Plan: 31 yo male sp 60 ft fall while rock climbing sustaining sacral, pelvic fracture and L1 compression fracture -Neuro intact- still unable to fully void on own- may be due to sacral nerve injury. Continue with straight cath protocol -TLSO brace fit, to be worn only when out of bed, not in bed -No surgical indications for L1 compression fracture -X-rays show stable L1 and sacral fractures -Call with any changes in neuro or motor exam -Discussed with Dr. Robison Subjective: back pain improving, leg pain/strength improving Objective: NAD A&Ox3 MAEx4 09/21 and equal in BUE and BLE. Catheter Insertion Date: 08/14/16 - Physician Discussed Patient with : Ricki Neurosurgery Physical Exam - Vitals, I&O, Labs I and O 08/16/16 08/17/16 08/18/16 05:59 05:59 05:59 Intake Total 2000 Output Total 900 2330 Balance 1100 -2330 Intake: Oral (ml) 2000 Output: Urine (ml) 900 2330 Catheter 900 2180 Urinal 150 Other: Intake Quantity Yes Sufficient Number of Voids Catheter 1 1 Urinal 1 Bladder Scan Volume (ml) Catheter 350 600 Vital Signs Temp Pulse Resp BP Pulse Ox 37.0 C 87 15 111/60 95 08/17/16 07:49 08/17/16 07:49 08/17/16 07:49 08/17/16 07:49 08/17/16 07:49 Laboratory Results 08/17/16 08:13 08/15/16 05:40 ICD10 Worksheet Patient Problems: Problems Problem Status Onset Compression fracture of L1 lumbar vertebra Acute Fracture of left inferior pubic ramus Acute Fracture of left superior pubic ramus Acute Fracture of sacrum Acute Injury resulting from fall from height Acute Mountain climbing, rock climbing and wall climbing Acute Mountain climbing, rock climbing and wall climbing Acute
[2016-08-17] MEDS: SENNOSIDES/DOCUSATE SODIUM TAB PO SCH ×2 (10:15→20:26)
[2016-08-17] MEDS: ENOXAPARIN 40 MG/0.4 ML SYR SC SCH (10:24)
[2016-08-17] MEDS: POLYETHYLENE GLYCOL 3350 17 GM PKT PO PRN (11:21)
[2016-08-17] MEDS: METOCLOPRAMIDE 10 MG TAB PO SCH ×3 (11:21→20:26)
[2016-08-17 11:43] LABS: % IMMATURE GRANULYOCYTES 0.4 % (0.0-1.1); ABSOLUTE IMMATURE GRANULOCYTES 0.02 10^3/uL (0.00-0.10); ADD DIFF? NO; ADD MORPH? NO; ADD SCAN? NO; ATYPICAL LYMPHOCYTE FLAG 10 (0-99); FRAGMENT RBC FLAG 0 (0-99); HEMATOCRIT 22.4 % (40.0-51.0); HEMOGLOBIN 7.7 g/dL (13.7-17.5); LEFT SHIFT FLG 60 (0-99); LIPEMIA HEMOLYSIS FLAG 90 (0-99); MEAN CELL HEMOGLOBIN 29.4 pg (27.9-34.1); MEAN CELL HEMOGLOBIN CONCENTR. 34.4 g/dL (32.4-36.7); MEAN CELL VOLUME 85.5 fL (81.5-99.8); MEAN PLATELET VOLUME 10.4 fL (8.7-11.7); PLATELET CLUMPS FLAG 0 (0-99); PLATELET COUNT 88 10^3/uL (150-400); RED BLOOD CELL COUNT 2.62 10^6/uL (4.40-6.38); RED CELL DISTRIBUTION WIDTH 14.6 % (11.5-15.2)
--- NOTE | 2016-08-17 14:59 | PDIAF ---
- Diagnosis Diagnosis: Urinary retention Code Status: Full Code - Medication Management Discharge Medications: Medications to Continue on Transfer Glucosamine Sulfate [Glucosamine Sulfate 500 MG (*)] 500 mg PO DAILY 08/13/16 [ Last Taken 08/13/16] Herbals/Supplements -Info Only 1 ea PO DAILY 08/13/16 [Last Taken Unknown] [place]-3 Fatty Acids [Fish Oil 1000 mg (*)] 1,000 mg PO DAILY 08/13/16 [Last Taken 08/13/16] Discharge Medications: Refer to the Discharge Home Medication list for PRN reason. - Orders Services needed: Home Care, Registered Nurse Home Care Face to Face: I certify that this patient was under my care and that I had the required [id number] encounter meeting the encounter requirements on the discharge day. My findings support the fact that the patient is homebound as defined in CMS Chapter 7 Medicare Benefits Manual 30.1.1, The condition of the patient is such that there exists a normal inability to leave home and consequently, leaving home would require a considerable and taxing effort. Diet Recommendation: no restrictions on diet Equipment: Self-catheterization supplies - Follow Up Care Current Providers and Referrals: Patient,NotPresent [Unknown] - As per Instructions
--- NOTE | 2016-08-17 16:03 | PDINTPN ---
Workers' Compensation Commissioner Progress Note Assessment/Plan: Assessment: S/P Fall with pelvic/sacral Fxs, extensive hematoma Anemia: Due to soft-tissue bleeding in pelvis/hip tissues: S/P successful IR embolization. Hgb low but stable. Thrombocytopenia: Consumptive coagulopathy, with elevated INR as well. INR came down, Plt essentially unchanged. Urinary retention No BM Plan: Follow CBC. Straight cath PRN. Will arrange for home self-cath. PO narcotics for pain control. Increase activity as tolerated, ? try Zofran before activity. Will check Abd Xray. May transfer to floor or discharge if Hgb/Plt don't fall further. 08/17/16 16:06 Subjective: C/O nausea with movements (not specifically head movement, primarily large body movements). No BMs. Still unable to void. Objective: Vital Signs Temp Pulse Resp BP Pulse Ox 36.9 C 97 18 118/66 98 08/17/16 11:42 08/17/16 11:42 08/17/16 11:42 08/17/16 11:42 08/17/16 11:42 Laboratory Results 08/17/16 10:45 08/15/16 05:40 08/16/16 08/17/16 08/18/16 05:59 05:59 05:59 Intake Total 2000 450 Output Total 900 2330 Balance 1100 -2330 450 PT 17.0 SEC (12.0-15.0) H 08/15/16 05:40 INR 1.39 (0.83-1.16) H 08/15/16 05:40 Physical Exam - Physical Exam General Appearance: alert, no apparent distress EENT: normal ENT inspection Neck: normal inspection Respiratory: lungs clear, normal breath sounds Cardiac/Chest: regular rate, rhythm, edema Abdomen: normal bowel sounds, non-tender Skin: normal color, warm/dry Extremities: normal inspection Neuro/Psych: alert, normal mood/affect ICD10 Worksheet Patient Problems: Problems Problem Status Onset Compression fracture of L1 lumbar vertebra Acute Fracture of left inferior pubic ramus Acute Fracture of left superior pubic ramus Acute Fracture of sacrum Acute Injury resulting from fall from height Acute Mountain climbing, rock climbing and wall climbing Acute Mountain climbing, rock climbing and wall climbing Acute
[2016-08-17] MEDS: FAMOTIDINE 20 MG TAB PO SCH (20:26)
--- NOTE | 2016-08-18 00:16 | SOAPPROG ---
SOAP Progress Note Assessment/Plan: Assessment: 31 male with60 ft climbing fall 3 hrs prior to er admisssion co left butttock and leg pain/ no loc/ no other pain complaints ct findings: rt pulmonary mild contusion L1 compression fx complex sacral fxs left superior and inferior pubic rami fxs heent abrasion rt frontal area cor rr chest clear and equal abd nontender gen ok rectal good tone extr full rom and sensation, pain with left thigh movement nka/ no meds/ no tob/ ROS-/ PHX - with no surgeries Plan:admit to icu/ ortho and neuro consult in am 08/13/16 22:34 08/18/16 00:12 SEEN THIS AM 08/17/16 DOING WELL OVERALL/ MOBILE USING BRACE MAJOR PROBLEM IS ATONIC BLADDER REQUIRING MULTIPLE STRAIGHT CATHS HCT STABLE/ AFEBRILE/ EATING OK/ NO BM YET HEENT -/ CHEST SYMMETRIC/ COR RR/ ABD SOFT/ EXTREM FULL ROM 2 ISSUES: UNABLE TO VOID EASILY AND NO BM YET REHAB EVAL Objective: Vital Signs Temp Pulse Resp BP Pulse Ox 36.4 C 90 16 126/80 H 100 08/17/16 20:00 08/17/16 20:00 08/17/16 20:00 08/17/16 20:00 08/17/16 20:00 Laboratory Results 08/17/16 10:45 08/15/16 05:40 08/16/16 08/17/16 08/18/16 05:59 05:59 05:59 Intake Total 1999 1650 Output Total 900 2330 925 Balance 1100 -2330 725 PT 17.0 SEC (12.0-15.0) H 08/15/16 05:40 INR 1.39 (0.83-1.16) H 08/15/16 05:40 ICD10 Worksheet Patient Problems: Problems Problem Status Onset Compression fracture of L1 lumbar vertebra Acute Fracture of left inferior pubic ramus Acute Fracture of left superior pubic ramus Acute Fracture of sacrum Acute Injury resulting from fall from height Acute Mountain climbing, rock climbing and wall climbing Acute Mountain climbing, rock climbing and wall climbing Acute
[2016-08-18] MEDS: METOCLOPRAMIDE 10 MG TAB PO SCH ×3 (06:39→17:40)
[2016-08-18] MEDS: ONDANSETRON 4 MG/2 ML VIAL IVP PRN ×3 (07:24→17:44)
[2016-08-18] MEDS ORDERED: CEPACOL LOZENGE PO ONE (08:23)
[2016-08-18] MEDS: OXYCODONE/APAP 5/325 TAB PO PRN (09:04)
[2016-08-18] MEDS: ENOXAPARIN 40 MG/0.4 ML SYR SC SCH (09:04)
[2016-08-18] MEDS: SENNOSIDES/DOCUSATE SODIUM TAB PO SCH (09:05)
[2016-08-18] MEDS: FAMOTIDINE 20 MG TAB PO SCH (09:05)
--- NOTE | 2016-08-18 09:27 | SOAPPROG ---
SOAP Progress Note Assessment/Plan: Assessment: 31 yo male sp 60 ft fall while rock climbing sustaining sacral, pelvic fracture and L1 compression fracture -Neuro intact- still unable to fully void on own but having some improvement. Able to void 200 overnight. Difficulty secondary to sacral nerve root injury with sacral fx through L2. Continue with straight cath protocol. Defer to urology for long-term management -TLSO brace fit, to be worn only when out of bed, not in bed -No surgical indications for L1 compression fracture -X-rays show stable L1 and sacral fractures -Call with any changes in neuro or motor exam, neurosurgery to sign off. F/u in 4 weeks with lumbar xrays 08/18/16 09:19 Subjective: Doing well. Improvement in pain rated 4/10, Able to void 200ml overnight but still requiring straight cath Objective: Vital Signs Temp Pulse Resp BP Pulse Ox 36.4 C 90 16 126/80 H 100 08/17/16 20:00 08/17/16 20:00 08/17/16 20:00 08/17/16 20:00 08/17/16 20:00 Laboratory Results 08/17/16 10:45 08/15/16 05:40 08/17/16 08/18/16 08/19/16 05:59 05:59 05:59 Intake Total 1650 Output Total 2330 1550 Balance -2330 100 PT 17.0 SEC (12.0-15.0) H 08/15/16 05:40 INR 1.39 (0.83-1.16) H 08/15/16 05:40 AandOx3, PERRL, MAEWx4 5/5 - Pending Discharge Pending Discharge Within 24 Hours: Yes Pending Discharge Date: 08/19/16 Pending Discharge Time: 11:00 ICD10 Worksheet Patient Problems: Problems Problem Status Onset Compression fracture of L1 lumbar vertebra Acute Fracture of left inferior pubic ramus Acute Fracture of left superior pubic ramus Acute Fracture of sacrum Acute Injury resulting from fall from height Acute Mountain climbing, rock climbing and wall climbing Acute Mountain climbing, rock climbing and wall climbing Acute
[2016-08-18] MEDS ORDERED: KETOROLAC 30 MG/1 ML SDV IVP ONE (09:36)
--- NOTE | 2016-08-18 09:52 | TRAUMAPN ---
Assessment/Plan: 31 yo male sp 60 ft fall while rock climbing sustaining sacral, pelvic fracture and L1 compression fracture. IR embolization of pelvic bleed. No new overnight events. Minimal void but having some increased bladder and rectal sensation. Has not straight cathed by himself yet. Normal BLE motor/ sensation with ambulation. No CP or SOB. No abd complaints. AVSS. comfortable. moving easily. abd soft, nontender. Hb yesterday 7.7. Continued progress. Care plan reviewed with NS - continued TLSO brace, non op fx management. To see as outpatient - straight cath teaching to be started today. Pelvic bleeding - resolved. Continued PT/OT. Possible DC to home tomorrow if able to function independently. Objective: Vital Signs Temp Pulse Resp BP Pulse Ox 36.4 C 90 16 126/80 H 100 08/17/16 20:00 08/17/16 20:00 08/17/16 20:00 08/17/16 20:00 08/17/16 20:00 Laboratory Results 08/17/16 10:45 08/15/16 05:40 08/17/16 08/18/16 08/19/16 05:59 05:59 05:59 Intake Total 1650 Output Total 2330 1550 Balance -2330 100 PT 17.0 SEC (12.0-15.0) H 08/15/16 05:40 INR 1.39 (0.83-1.16) H 08/15/16 05:40 - C-Spine Clearance Cervical Spine Cleared: Yes Provider who Cleared Cervical Spine: Dr. Mobley
[2016-08-18] MEDS: KETOROLAC 15 MG/1 ML SDV IVP SCH ×2 (12:00→17:44)
[2016-08-19] MEDS: PROMETHAZINE HCL 25 MG TAB PO PRN ×2 (00:25→21:09)
[2016-08-19] MEDS: FAMOTIDINE 20 MG TAB PO SCH ×3 (00:26→21:05)
[2016-08-19] MEDS: SENNOSIDES/DOCUSATE SODIUM TAB PO SCH ×3 (00:26→21:05)
[2016-08-19] MEDS: KETOROLAC 15 MG/1 ML SDV IVP SCH ×5 (00:26→23:52)
[2016-08-19] MEDS: METOCLOPRAMIDE 10 MG TAB PO SCH ×5 (00:27→21:04)
[2016-08-19] MEDS: ONDANSETRON 4 MG/2 ML VIAL IVP PRN ×3 (06:19→18:15)
[2016-08-19] MEDS: MAGNESIUM HYDROXIDE 30 ML UDCUP PO PRN (06:19)
[2016-08-19] MEDS ORDERED: GOLYTELY 4000 ML BTL PO ONE (08:58)
[2016-08-19] MEDS ORDERED: NON-FORMULARY NEW DRUG (Omega-3 Fatty Acids [Fish Oil 1000 Mg (*)] 1,000 MG) PO SCH (09:00)
[2016-08-19] MEDS ORDERED: GLUCOSAMINE SULFATE 500 MG PO SCH (09:00)
[2016-08-19] MEDS: GLUCOSAMINE SULF 500 MG CAP PO SCH (10:42)
[2016-08-19] MEDS: OMEGA-3 FATTY ACIDS 1,000 MG CAP PO SCH (10:42)
[2016-08-19] MEDS: ENOXAPARIN 40 MG/0.4 ML SYR SC SCH (10:42)
[2016-08-19 11:36] VITALS: RESP 16
--- NOTE | 2016-08-19 11:48 | TRAUMAPN ---
Assessment/Plan: s/p 60 ft fall with L1 compression fx (TLSO when out of bed) Sacral Fx Superior and Inferior pubic rami fractures Urinary retention improving - Able to void small amounts during the day. needs straight cath at night. Will start learning to straight cath Constipation - will try 2L golytely today Continue PT/OT - needs to do stairs in order to go home S: Feeling better. Able to get from bed to chair to bathroom independently. No BM yet Objective: Vital Signs Temp Pulse Resp BP Pulse Ox 36.8 C 89 16 118/74 96 08/18/16 11:57 08/19/16 11:35 08/19/16 11:35 08/19/16 11:35 08/19/16 11:35 Laboratory Results 08/17/16 10:45 08/15/16 05:40 08/18/16 08/19/16 08/20/16 05:59 05:59 05:59 Intake Total 1650 2300 Output Total 1550 1900 Balance 100 400 PT 17.0 SEC (12.0-15.0) H 08/15/16 05:40 INR 1.39 (0.83-1.16) H 08/15/16 05:40 - C-Spine Clearance Cervical Spine Cleared: Yes Provider who Cleared Cervical Spine: Dr. Mobley Physical Exam - Physical Exam General Appearance: WD/WN, alert, no apparent distress EENT: PERRL/EOMI, normal ENT inspection Respiratory: lungs clear, normal breath sounds Cardiac/Chest: regular rate, rhythm Abdomen: normal bowel sounds, non-tender Back: Other (brace in place) Extremities: other (good strength)
[2016-08-19] MEDS: OXYCODONE/APAP 5/325 TAB PO PRN (21:05)
[2016-08-20] MEDS: KETOROLAC 15 MG/1 ML SDV IVP SCH ×4 (06:15→23:04)
[2016-08-20] MEDS: OXYCODONE/APAP 5/325 TAB PO PRN ×2 (06:16→20:24)
[2016-08-20] MEDS: ONDANSETRON 4 MG/2 ML VIAL IVP PRN (06:22)
[2016-08-20] MEDS: METOCLOPRAMIDE 10 MG TAB PO SCH ×4 (06:23→20:24)
[2016-08-20] MEDS: OMEGA-3 FATTY ACIDS 1,000 MG CAP PO SCH (08:43)
[2016-08-20] MEDS: FAMOTIDINE 20 MG TAB PO SCH ×2 (08:43→20:25)
[2016-08-20] MEDS: SENNOSIDES/DOCUSATE SODIUM TAB PO SCH ×2 (09:00→20:25)
[2016-08-20] MEDS: ENOXAPARIN 40 MG/0.4 ML SYR SC SCH ×2 (09:05→11:39)
[2016-08-20 09:17] LABS: HEMATOCRIT 23.2 % (40.0-51.0); HEMOGLOBIN 7.7 g/dL (13.7-17.5); MEAN CELL HEMOGLOBIN 29.3 pg (27.9-34.1); MEAN CELL HEMOGLOBIN CONCENTR. 33.2 g/dL (32.4-36.7); MEAN CELL VOLUME 88.2 fL (81.5-99.8); RED BLOOD CELL COUNT 2.63 10^6/uL (4.40-6.38); RED CELL DISTRIBUTION WIDTH 16.2 % (11.5-15.2)
--- NOTE | 2016-08-20 11:06 | SOAPPROG ---
SOAP Progress Note Assessment/Plan: Assessment: 31yo male s/p 60ft fall, sacral Fx, pelvic fractures,urinary retention, L1 Fracture Started doing self straight cath last night, still nervous about doing this regularly, tolerating regular diet, pain well controlled. Was able to do stairs yesterday. PE In chair, brace in place, comfortable no signs of distress Chest CTA B/L Plan: continue spine brace when out of bed continue PT/OT Home when cleared by PT/OT, pt has stairs also needs to be able to straight cath as an aside Father coming to town today for 2-3 days to help at home. 08/20/16 11:03 Objective: Vital Signs Temp Pulse Resp BP Pulse Ox 36.8 C 91 16 102/56 L 98 08/20/16 07:33 08/20/16 07:33 08/20/16 07:33 08/20/16 07:33 08/20/16 07:33 Laboratory Results 08/20/16 08:56 08/15/16 05:40 08/19/16 08/20/16 08/21/16 05:59 05:59 05:59 Intake Total 2300 300 Output Total 1900 150 Balance 400 150 PT 17.0 SEC (12.0-15.0) H 08/15/16 05:40 INR 1.39 (0.83-1.16) H 08/15/16 05:40 ICD10 Worksheet Patient Problems: Problems Problem Status Onset Compression fracture of L1 lumbar vertebra Acute Fracture of left inferior pubic ramus Acute Fracture of left superior pubic ramus Acute Fracture of sacrum Acute Injury resulting from fall from height Acute Mountain climbing, rock climbing and wall climbing Acute Mountain climbing, rock climbing and wall climbing Acute
[2016-08-20] MEDS: GLUCOSAMINE SULF 500 MG CAP PO SCH (11:39)
[2016-08-20] MEDS: POLYETHYLENE GLYCOL 3350 17 GM PKT PO PRN (16:07)
[2016-08-20] MEDS: PROMETHAZINE HCL 25 MG TAB PO PRN (20:24)
[2016-08-21] MEDS: METOCLOPRAMIDE 10 MG TAB PO SCH ×4 (06:01→21:13)
[2016-08-21] MEDS: ONDANSETRON 4 MG/2 ML VIAL IVP PRN (06:01)
[2016-08-21] MEDS: KETOROLAC 15 MG/1 ML SDV IVP SCH ×4 (06:01→21:20)
[2016-08-21] MEDS: OXYCODONE/APAP 5/325 TAB PO PRN ×2 (06:01→21:21)
[2016-08-21] MEDS: FAMOTIDINE 20 MG TAB PO SCH ×2 (08:05→21:13)
[2016-08-21] MEDS: SENNOSIDES/DOCUSATE SODIUM TAB PO SCH ×2 (08:05→21:14)
[2016-08-21] MEDS: OMEGA-3 FATTY ACIDS 1,000 MG CAP PO SCH (08:05)
[2016-08-21] MEDS: GLUCOSAMINE SULF 500 MG CAP PO SCH (08:05)
[2016-08-21] MEDS: ENOXAPARIN 40 MG/0.4 ML SYR SC SCH ×2 (08:05→08:06)
[2016-08-21] MEDS: MAGNESIUM HYDROXIDE 30 ML UDCUP PO PRN (13:35)
--- NOTE | 2016-08-21 14:18 | TRAUMAPN ---
Assessment/Plan: 08/21/2016 Assessment: While bowel movement is still an issue he is voiding with post void residuals of ~ 200 cc. Does self cath prior to sleep. Pain seems to be adequately controlled. C/o swelling of left lower leg. This may just be due to blood in tissue but need to r/o DVT. Close to being ready for discharge. Plan: Duplex ultrasound pending Subjective: My left leg is swollen Objective: Vital Signs Temp Pulse Resp BP Pulse Ox 36.9 C 82 16 105/58 L 94 08/21/16 07:00 08/21/16 07:00 08/21/16 07:00 08/21/16 07:00 08/21/16 07:00 Laboratory Results 08/20/16 08:56 08/15/16 05:40 08/20/16 08/21/16 08/22/16 05:59 05:59 05:59 Intake Total 300 500 350 Output Total 150 200 Balance 150 300 350 PT 17.0 SEC (12.0-15.0) H 08/15/16 05:40 INR 1.39 (0.83-1.16) H 08/15/16 05:40 - C-Spine Clearance Cervical Spine Cleared: Yes Provider who Cleared Cervical Spine: Dr. Mobley Physical Exam - Physical Exam General Appearance: WD/WN, alert, no apparent distress Neck: non-tender, full range of motion, supple Respiratory: chest non-tender, lungs clear, normal breath sounds Cardiac/Chest: regular rate, rhythm Abdomen: normal bowel sounds, non-tender, soft Male Genitalia: deferred Rectal: deferred Back: Normal inspection Skin: normal color, warm/dry Extremities: swelling (Ecchymotic and swollen legs- left much more promenent than right) Neuro/Psych: alert, normal mood/affect, oriented x 3 Time Spent w/Patient (minutes): 25
[2016-08-21] MEDS: PROMETHAZINE HCL 25 MG TAB PO PRN (21:21)
[2016-08-22] MEDS: METOCLOPRAMIDE 10 MG TAB PO SCH ×2 (05:28→12:54)
[2016-08-22] MEDS: ONDANSETRON 4 MG/2 ML VIAL IVP PRN (05:28)
[2016-08-22] MEDS: OXYCODONE/APAP 5/325 TAB PO PRN (05:28)
[2016-08-22] MEDS: KETOROLAC 15 MG/1 ML SDV IVP SCH ×2 (05:28→12:54)
[2016-08-22] MEDS: GLUCOSAMINE SULF 500 MG CAP PO SCH (07:56)
[2016-08-22] MEDS: OMEGA-3 FATTY ACIDS 1,000 MG CAP PO SCH (07:57)
[2016-08-22] MEDS: FAMOTIDINE 20 MG TAB PO SCH (07:57)
[2016-08-22] MEDS: SENNOSIDES/DOCUSATE SODIUM TAB PO SCH (07:57)
[2016-08-22 08:08] VITALS: BP 122/67; PULSE 83; TEMP 98; O2SAT 92
[2016-08-22] MEDS: ENOXAPARIN 40 MG/0.4 ML SYR SC SCH (08:45)
--- NOTE | 2016-08-22 09:32 | TRAUMAPN ---
Assessment/Plan: 08/21/2016 Assessment: While bowel movement is still an issue he is voiding with post void residuals of ~ 200 cc. Does self cath prior to sleep. Pain seems to be adequately controlled. C/o swelling of left lower leg. This may just be due to blood in tissue but need to r/o DVT. Close to being ready for discharge. Plan: Duplex ultrasound pending 08/22/2016 Assessment: Duplex for legs negative. Post void residual still at about 300cc. He is only self cathing once daily prior to sleep. Pain well controlled. mobilization improving but still hurts to sit. Moving bowels! Plan: Follow up Chest xray then consider discharge today with follow up with neurosurgery, orthopedic surgery and trauma surgery. I suggest that he self cath more often to allow bladder to recover form stretch. Subjective: no complaints Objective: Vital Signs Temp Pulse Resp BP Pulse Ox 36.6 C 83 16 122/67 H 92 08/22/16 08:00 08/22/16 08:00 08/22/16 08:00 08/22/16 08:00 08/22/16 08:00 Laboratory Results 08/20/16 08:56 08/15/16 05:40 08/21/16 08/22/16 08/23/16 05:59 05:59 05:59 Intake Total 500 900 Output Total 200 600 Balance 300 300 PT 17.0 SEC (12.0-15.0) H 08/15/16 05:40 INR 1.39 (0.83-1.16) H 08/15/16 05:40 - C-Spine Clearance Cervical Spine Cleared: Yes Provider who Cleared Cervical Spine: Dr. Mobley Physical Exam - Physical Exam General Appearance: WD/WN, alert, no apparent distress Neck: non-tender, full range of motion, supple Respiratory: chest non-tender, lungs clear (decreased right base excursions) Cardiac/Chest: regular rate, rhythm Abdomen: normal bowel sounds, non-tender, soft Male Genitalia: deferred Rectal: deferred Back: Normal inspection (wearing TSLO brace well. Has left flank ecchymosis) Skin: normal color, warm/dry Extremities: normal range of motion (left leg more swollen than right - ecchymotic) Neuro/Psych: no motor/sensory deficits, alert, normal mood/affect, oriented x 3 Time Spent w/Patient (minutes): 35
[2016-08-22] MEDS ORDERED: OXYCODONE/APAP 5/325 TAB PO PRN (11:02)
--- NOTE | 2016-08-22 13:46 | PDIAF ---
- Diagnosis Diagnosis: Urinary retention Code Status: Full Code - Medication Management Discharge Medications: Medications to Continue on Transfer Glucosamine Sulfate [Glucosamine Sulfate 500 MG (*)] 500 mg PO DAILY 08/13/16 [ Last Taken 08/13/16] [place]-3 Fatty Acids [Fish Oil 1000 mg (*)] 1,000 mg PO DAILY 08/13/16 [Last Taken 08/13/16] Acetaminophen [Tylenol Extra Strength] 1,000 mg PO Q8 #60 tablet 08/22/16 [Last Taken Unknown] HYDROmorphone HCL [Dilaudid 2 mg (*)] 2 - 4 mg PO Q4 PRN #30 tab 08/22/16 [Last Taken Unknown] Ibuprofen [Motrin (*)] 200 mg PO Q6 #60 tab 08/22/16 [Last Taken Unknown] Polyethylene Glycol 3350 [Miralax 17 gm (*)] 17 gm PO DAILY PRN #0 pkt 08/22/16 [Last Taken Unknown] Discharge Medications: Refer to the Discharge Home Medication list for PRN reason. - Orders Services needed: Home Care, Registered Nurse, Physical Therapy Home Care Face to Face: I certify that this patient was under my care and that I had the required [id number] encounter meeting the encounter requirements on the discharge day. My findings support the fact that the patient is homebound as defined in CMS Chapter 7 Medicare Benefits Manual 30.1.1, The condition of the patient is such that there exists a normal inability to leave home and consequently, leaving home would require a considerable and taxing effort. Diet Recommendation: no restrictions on diet (suggest avoiding constipating foods such as: Bananas, rice, apple sauce and cheese. Drink plenty of water) Diet Texture: Regular Texture Diet Equipment: Self-catheterization supplies - Follow Up Care Current Providers and Referrals: Jenifer Hassan DO [Doctor of Osteopathy] - (Follow up in 4 weeks) Ruben Mobley MD [Medical Doctor] - (Follow up in 2 weeks for bladder function re-assessment) Patient,NotPresent [Unknown] - As per Instructions Jeanmarie Cox MD [Medical Doctor] - (Pt is encouraged to follow up w/ Dr. Cox 6 weeks from the initial injury, or sooner with any additional concerns or complaints. The pt is enouraged to contact the office as soon as possible to schedule this appointment.)
--- NOTE | 2016-08-22 14:23 | GDS ---
[f rep st] DISCHARGE SUMMARY DISCHARGE DIAGNOSIS: Fall from height with loss of consciousness (transient), left superior and inferior pubic ramus fractures, L1 compression fracture, right lung contusion, left leg ecchymosis and swelling (DVT workup negative), left flank ecchymosis at L4-5 and L5-S1, disk bulging, pelvic bleeding requiring angiographic embolization. CONDITION AT DISCHARGE: Improved. DISPOSITION: Home. OPERATIONS: None beyond embolization. MEDICATIONS AT DISCHARGE: With the use Tylenol 1000 mg every 8 hours by schedule, Motrin 200 mg every 6 hours by schedule and Dilaudid 2 mg to 4 mg every 4 hours as needed for breakthrough pain. He will continue to use MiraLAX for constipation. He will continue his omega-3 fatty acids and glucosamines and stop his herbal supplements. He will follow up with Dr. Cox (Orthopedic Surgery) in 6 weeks for pelvic x-rays. He will followup with Neurosurgery, Dr. Jenifer Hassan, in 4 weeks. He will follow up with Dr. Dale Mobley as needed for urinary retention. He will use his TLSO brace whenever he is out of bed and will self-catheterization 3 times a day to completely empty his bladder decreasing muscle stretch. HOSPITAL COURSE: He was admitted and had persistent bleeding and underwent angiography to embolize bleeding sites in the distribution of the left pudendal and internal iliac vessels. He is having difficulty voiding, and in fact has had to learn to self-cath. His postvoid residuals are reported around 300 at this time. He will try to self-catheterize himself more frequently to prevent bladder overdistention. He has been able to move his bowels spontaneously. He is able to ambulate with a walker. It is still uncomfortable for him to sit. He has a left flank ecchymosis as well as a left leg ecchymosis. Both legs are swollen, the left is greater than right. A followup ultrasound with duplex yesterday was negative. Followup chest x-ray did not show any signs of hemopneumothorax, contusions or atelectasis. He will continue use his incentive spirometer. /[id number]/MODL MTDD
== END 2016-08-22 16:33 | disposition home health service (06) | DRG 958 ==
LOC: F2N 21:48 → F3N 08-19 15:26
PROVIDERS: ADMIT Surgery; ATTEND Surgery
PROC: 04LF3DZ Occlusion of Left Internal Iliac Artery with Intraluminal Device, Percutaneous Approach (ICD-10-PCS; principal; 2016-08-14)
PROC: 02HV33Z Insertion of Infusion Device into Superior Vena Cava, Percutaneous Approach (ICD-10-PCS; 2016-08-14)
DX: S32.592A Other specified fracture of left pubis, initial encounter for closed fracture (principal); S32.010A Wedge compression fracture of first lumbar vertebra, initial encounter for closed fracture; S27.321A Contusion of lung, unilateral, initial encounter; S32.10XA Unspecified fracture of sacrum, initial encounter for closed fracture; S35.512A Injury of left iliac artery, initial encounter; S32.512A Fracture of superior rim of left pubis, initial encounter for closed fracture; M51.26 Other intervertebral disc displacement, lumbar region; W17.89XA Other fall from one level to another, initial encounter; Y93.31 Activity, mountain climbing, rock climbing and wall climbing; R40.2411 Glasgow coma scale score 13-15, in the field [EMT or ambulance]; D64.9 Anemia, unspecified; E86.1 Hypovolemia; D69.6 Thrombocytopenia, unspecified; K59.00 Constipation, unspecified; R33.9 Retention of urine, unspecified
CPT/HCPCS: 82947-QW; 92507-GN; 92523-GN; 96374; 97110-GP; 97116-GP; 97162-GP; 97165-GO; 97530-GP; 97535-GO; C1751; C1758; C1760; C1769; C1892; C1894; J1170; J1265; J1644; J1650; J1885; J2250; J2310; J2370; J2405; J2997; J3010; J3430; P9016; P9017; P9041; Q9967